=== PATIENT | female | born 1960 | race African-American/Black ===

== ENCOUNTER 2016-09-18 08:43 | Emergency (ER) | payer BC ==
[~2016-09-18] VITALS: Ht 157.5 cm; Wt 87.0 kg
[2016-09-18 09:56] LABS: BASOPHILS % 1.2 % (0.0-2.0); EOSINOPHILS % 1.5 % (0.0-5.0); HEMATOCRIT. 35.6 % (36.0-48.0); HEMOGLOBIN. 11.5 g/dL (12.0-16.0); LYMPHOCYTES % 33.9 % (20.0-50.0); MEAN CORPUSCULAR VOLUME 80.9 fL (81.0-99.0); MEAN PLATELET VOLUME 7.8 fl (7.4-10.4); MONOCYTES % 6.1 % (2.0-8.0); NEUTROPHILS % 57.3 % (40.0-76.0); PLATELET 283 x1000/uL (130-400); RED CELL DISTRIBUTION WIDTH 15.5 % (11.6-14.6)
[2016-09-18 10:04] LABS: PROTHROMBIN TIME 10.2 sec
[2016-09-18 10:13] LABS: CARBON DIOXIDE 28 mEq/L (21-32); CHLORIDE 106 mEq/L (98-107); TROPONIN I < 0.02 ng/mL (0.00-0.04)
[2016-09-18] MEDS ORDERED: KETOROLAC 30MG/ML VIAL IV ONE (11:45)
[2016-09-18 13:10] VITALS: BP 132/72
== END 2016-09-18 13:12 | disposition home or self-care (01) ==
LOC: ER 09:33
DX: M54.12 Radiculopathy, cervical region (principal); I10 Essential (primary) hypertension; M25.512 Pain in left shoulder
CPT/HCPCS: 36415; 71010; 72125; 80048; 84484; 85025; 85610; 93005; 96374; 99285; J1885; Z7610

== ENCOUNTER 2016-10-18 13:46 | Emergency (ER) | payer BC ==
[~2016-10-18] VITALS: Ht 157.5 cm; Wt 86.0 kg
[2016-10-18 13:58] VITALS: BP 153/100
[2016-10-18] MEDS ORDERED: IBUP-1509 PO (14:04)
[2016-10-18] MEDS ORDERED: AMLO5TAB4 PO (14:04)
== END 2016-10-18 17:03 | disposition left against medical advice (07) ==
LOC: ER 13:46
DX: Z53.21 Procedure and treatment not carried out due to patient leaving prior to being seen by health care provider (principal); I10 Essential (primary) hypertension

== ENCOUNTER 2020-06-29 05:45 | Emergency (ER) | payer BC ==
[~2020-06-29] VITALS: Ht 165.1 cm; Wt 80.0 kg
[~2020-06-29 05:45] MED LIST: AMLO5TAB4 PO; IBUP-2028 PO
[2020-06-29 06:20] VITALS: BP 133/74
== END 2020-06-29 06:33 | disposition home or self-care (01) ==
LOC: ER 05:45
DX: R04.0 Epistaxis (principal); I10 Essential (primary) hypertension; E03.9 Hypothyroidism, unspecified
CPT/HCPCS: 99283

== ENCOUNTER 2020-10-20 08:36 | Inpatient (IN) | payer BC ==
[~2020-10-20] VITALS: Ht 157.5 cm; Wt 78.9 kg
[2020-10-20] MEDS ORDERED: ACETAMINOPHEN 325MG TABLET PO STA (09:12)
[2020-10-20] MEDS ORDERED: ONDANSETRON 4MG ODT PO STA (09:12)
[2020-10-20 10:01] LABS: BASOPHILS % 0.9 % (0.0-2.0); HEMOGLOBIN. 12.7 g/dL (12.0-16.0); LYMPHOCYTES % 13.1 % (20.0-50.0); MEAN CORPUSCULAR HEMOGLOBIN 26.2 pg (28.0-32.0); MEAN CORPUSCULAR VOLUME 78.3 fL (81.0-99.0); MEAN PLATELET VOLUME 8.4 fl (7.4-10.4); MONOCYTES % 5.6 % (2.0-8.0); NEUTROPHILS % 80.4 % (40.0-76.0); PLATELET 293 x1000/uL (130-400); RED BLOOD CELL COUNT 4.84 mill/uL (4.2-5.4); RED CELL DISTRIBUTION WIDTH 14.7 % (11.6-14.6)
[2020-10-20 10:06] LABS: CHLORIDE 92 mEq/L (98-107)
[2020-10-20 10:10] LABS: ETHANOL BLOOD < 10 mg/dL
[2020-10-20 10:18] LABS: CLARITY URINE CLOUDY (CLEAR); COLOR URINE YELLOW (YELLOW); KETONES URINE 1+ (NEGATIVE); LEUKOCYTE ESTERASE URINE NEGATIVE (NEGATIVE); NITRITE URINE NEGATIVE (NEGATIVE); OCCULT BLOOD URINE NEGATIVE (NEGATIVE); PH URINE 5.5 (4.5-8.0); PROTEIN URINE 2+ (NEGATIVE); SPECIFIC GRAVITY URINE 1.026 (1.005-1.030)
[2020-10-20] MEDS ORDERED: AZITHROMYCIN 500 MG in DEXT 5% WATER 250 ML IV SCH (10:30)
[2020-10-20] MEDS ORDERED: SODIUM CHLORIDE 0.9% 500 ML IV NR (10:30)
[2020-10-20] MEDS ORDERED: POTASSIUM CHLORIDE 20MEQ TABLET SR PO NR (10:30)
[2020-10-20] MEDS ORDERED: CEFTRIAXONE 1 G PREMIX 50 ML IV NR (10:30)
[2020-10-20 11:13] LABS: *AMPHETAMINES SCREEN URINE NEGATIVE (NEGATIVE); *BARBITURATES SCREEN URINE NEGATIVE (NEGATIVE); *BENZODIAZEPINES SCREEN URINE NEGATIVE (NEGATIVE); *COCAINE SCREEN URINE NEGATIVE (NEGATIVE); CANNABINOID URINE SCREEN NEGATIVE (NEGATIVE); METHADONE URINE SCREEN NEGATIVE (NEGATIVE); OPIATES URINE SCREEN NEGATIVE (NEGATIVE)
[2020-10-20 11:14] LABS: PHENCYCLIDINE URINE SCREEN NEGATIVE (NEGATIVE)
[2020-10-21] VITALS: BP 139/82
[2020-10-21] MEDS ORDERED: POTASSIUM CHLORIDE 20MEQ TABLET SR PO NR (01:15)
[2020-10-21] MEDS ORDERED: ACETAMINOPHEN 325MG TABLET PO PRN (01:15)
[2020-10-21] MEDS ORDERED: DEXTROSE 50% WATER 50ML SYRINGE IV PRN (01:15)
[2020-10-21] MEDS ORDERED: ONDANSETRON HCL 4MG/2ML INJ IV PRN ×2 (01:15)
[2020-10-21] MEDS: PANTOPRAZOLE SODIUM 40 MG/VIAL IV SCH ×2 (02:32→11:00)
[2020-10-21] MEDS: SODIUM CHLORIDE 0.45% 1,000 ML IV SCH ×2 (02:32→13:43)
[2020-10-21] MEDS ORDERED: HYDR50TA MT (03:18)
[2020-10-21] MEDS ORDERED: LEVO100T9 MT (03:19)
[2020-10-21 04:00] VITALS: BP 117/71
[2020-10-21 05:54] LABS: HEMATOCRIT. 35.1 % (36.0-48.0); HEMOGLOBIN. 11.7 g/dL (12.0-16.0); MEAN CORPUSCULAR HEMOGLOBIN 26.2 pg (28.0-32.0); MEAN CORPUSCULAR VOLUME 78.7 fL (81.0-99.0); MEAN PLATELET VOLUME 9.2 fl (7.4-10.4); PLATELET 322 x1000/uL (130-400); RED BLOOD CELL COUNT 4.46 mill/uL (4.2-5.4); RED CELL DISTRIBUTION WIDTH 14.4 % (11.6-14.6)
[2020-10-21 06:16] LABS: CHLORIDE 94 mEq/L (98-107)
[2020-10-21] MEDS ORDERED: BLOOD SUGAR DIAGNOSTIC STRIP TEST SCH (07:10)
[2020-10-21] MEDS: BLOOD SUGAR DIAGNOSTIC STRIP TEST SCH ×4 (07:11→20:16)
[2020-10-21] MEDS: INSULIN LISPRO 100 UNITS/ML SUBCUT SCH ×4 (07:40→21:21)
[2020-10-21 08:00] VITALS: BP 121/71
[2020-10-21] MEDS ORDERED: CEFTRIAXONE 1 G PREMIX 50 ML IV SCH (09:00)
[2020-10-21] MEDS ORDERED: AMLODIPINE 5MG TABLET PO SCH (09:00)
[2020-10-21] MEDS ORDERED: METF-414 PO (10:51)
[2020-10-21] MEDS ORDERED: METF-414 MT (10:51)
[2020-10-21] MEDS: CEFTRIAXONE 1,000 MG in DEXTROSE 5% WATER 50 ML IV SCH (11:00)
[2020-10-21 12:00] VITALS: BP 119/76
[2020-10-21] MEDS: AZITHROMYCIN 500 MG in DEXT 5% WATER 250 ML IV SCH (13:42)
[2020-10-21 16:00] VITALS: BP 132/79
[2020-10-21 20:00] VITALS: BP 116/71
[2020-10-21 22:47] LABS: PLATELET ESTIMATE NORMAL
[2020-10-22] VITALS: BP 125/73
[2020-10-22] MEDS: SODIUM CHLORIDE 0.45% 1,000 ML IV SCH ×3 (02:00→22:37)
[2020-10-22 04:00] VITALS: BP 108/64
[2020-10-22] MEDS: BLOOD SUGAR DIAGNOSTIC STRIP TEST SCH ×4 (05:28→20:30)
[2020-10-22] MEDS: INSULIN LISPRO 100 UNITS/ML SUBCUT SCH ×4 (05:52→21:35)
[2020-10-22 08:00] VITALS: BP 105/64
[2020-10-22] MEDS: PANTOPRAZOLE SODIUM 40 MG/VIAL IV SCH (08:53)
[2020-10-22] MEDS: CEFTRIAXONE 1,000 MG in DEXTROSE 5% WATER 50 ML IV SCH (10:54)
[2020-10-22 12:00] VITALS: BP 122/66
[2020-10-22] MEDS: AZITHROMYCIN 500 MG in DEXT 5% WATER 250 ML IV SCH (12:14)
[2020-10-22] MEDS ORDERED: LACTULOSE 20G/30ML UDC PO PRN (16:15)
[2020-10-22] MEDS ORDERED: LORAZEPAM 2MG/ML CPJ IV PRN (16:15)
[2020-10-22] MEDS ORDERED: HYDROCODONE/ACETAMINOPHEN 5/325MG TABLET PO PRN (16:15)
[2020-10-22 16:27] LABS: BASOPHILS % 0.5 % (0.0-2.0); EOSINOPHILS % 1.1 % (0.0-5.0); HEMOGLOBIN. 11.8 g/dL (12.0-16.0); LYMPHOCYTES % 30.2 % (20.0-50.0); MEAN PLATELET VOLUME 8.6 fl (7.4-10.4); MONOCYTES % 8.3 % (2.0-8.0); NEUTROPHILS % 59.9 % (40.0-76.0); PLATELET 401 x1000/uL (130-400); RED BLOOD CELL COUNT 4.37 mill/uL (4.2-5.4); RED CELL DISTRIBUTION WIDTH 14.9 % (11.6-14.6)
[2020-10-22 16:47] LABS: CHLORIDE 96 mEq/L (98-107)
[2020-10-22] MEDS ORDERED: ENOXAPARIN 40MG/0.4ML SYR SUBCUT SCH (17:00)
[2020-10-22 17:09] LABS: BG BASE EXCESS 2.3 mmol/L (-2.0-2.0); BG CARBOXYHEMOGLOBIN 0.6 % (0.5-1.5); BG HCO3 ACT 24.8 mmol/L (22.0-26.0); BG METHEMOGLOBIN 0.1 % (0.0-1.5); BG OXYHEMOGLOBIN 95.3 % (94.0-97.0); BG PH 7.507 (7.350-7.450); BG PO2 77.4 mmHg (75.0-100.0); BG SAMPLE SITE RIGHT RADIAL; BG TOTAL HEMOGLOBIN 12.7 g/dL (12.0-18.0); BG VENT MODE ROOM AIR
[2020-10-22] MEDS ORDERED: METHYLPREDNISOLONE SOD SUCC 40 MG/ML VIAL IV SCH (18:00)
[2020-10-22 20:00] VITALS: BP 109/61
[2020-10-22] MEDS: IPRATROPIUM/ALBUTEROL 0.5-3(2.5)MG/3ML NEB HHN SCH (21:20)
[2020-10-22] MEDS ORDERED: IOHEXOL-350 100 ML BOTTLE ONE (22:46)
[2020-10-23] VITALS: BP 112/69
[2020-10-23] MEDS: IPRATROPIUM/ALBUTEROL 0.5-3(2.5)MG/3ML NEB HHN SCH ×3 (01:27→14:18)
[2020-10-23 04:00] VITALS: BP 127/74
[2020-10-23] MEDS: BLOOD SUGAR DIAGNOSTIC STRIP TEST SCH (05:19)
[2020-10-23] MEDS: INSULIN LISPRO 100 UNITS/ML SUBCUT SCH ×2 (05:32→13:06)
[2020-10-23 07:36] LABS: CHLORIDE 100 mEq/L (98-107)
[2020-10-23 08:00] VITALS: BP 125/66
[2020-10-23 08:37] LABS: BASOPHILS % 0.9 % (0.0-2.0); EOSINOPHILS % 1.1 % (0.0-5.0); HEMATOCRIT. 36.4 % (36.0-48.0); HEMOGLOBIN. 11.4 g/dL (12.0-16.0); LYMPHOCYTES % 35.6 % (20.0-50.0); MEAN CORPUSCULAR HEMOGLOBIN 25.9 pg (28.0-32.0); MEAN CORPUSCULAR VOLUME 83.1 fL (81.0-99.0); MONOCYTES % 7.3 % (2.0-8.0); NEUTROPHILS % 55.1 % (40.0-76.0); RED BLOOD CELL COUNT 4.38 mill/uL (4.2-5.4); RED CELL DISTRIBUTION WIDTH 15.2 % (11.6-14.6)
[2020-10-23] MEDS: PANTOPRAZOLE SODIUM 40 MG/VIAL IV SCH (09:25)
[2020-10-23] MEDS: CEFTRIAXONE 1,000 MG in DEXTROSE 5% WATER 50 ML IV SCH (11:54)
[2020-10-23 12:00] VITALS: BP 131/77
[2020-10-23] MEDS ORDERED: ALBU90AE INH (12:57)
[2020-10-23] MEDS ORDERED: LEVO500T89 MT (12:57)
[2020-10-23] MEDS ORDERED: FAMO-135 PO (12:57)
[2020-10-23] MEDS ORDERED: BLOO-1613 MC (12:57)
[2020-10-23] MEDS ORDERED: INSLIS SUBCUT (12:57)
[2020-10-23] MEDS ORDERED: METF-414 MT (12:57)
[2020-10-23] MEDS ORDERED: P20 PO (12:57)
[2020-10-23] MEDS ORDERED: INSU100I28 SQ (12:57)
[2020-10-23 13:25] VITALS: BP 131/77
[2020-10-23 20:00] VITALS: BP 110/60
[2020-10-24] MEDS ORDERED: FAMOTIDINE 20MG/2ML VIAL IV SCH (09:00)
== END 2020-10-23 16:00 | disposition home health service (06) | DRG 871 ==
LOC: ER 08:36 → MICUSO 13:02 → EDBEDREQ 13:07 → EDBEDREQTM 13:28 → 8WST 22:34
PROVIDERS: ADMIT Internal Medicine; ATTEND Internal Medicine
DX: A41.9 Sepsis, unspecified organism (principal); J18.9 Pneumonia, unspecified organism; N39.0 Urinary tract infection, site not specified; E87.1 Hypo-osmolality and hyponatremia; I10 Essential (primary) hypertension; K76.0 Fatty (change of) liver, not elsewhere classified; E03.9 Hypothyroidism, unspecified; E11.65 Type 2 diabetes mellitus with hyperglycemia; E87.6 Hypokalemia; Z20.822 Contact with and (suspected) exposure to COVID-19; Z79.4 Long term (current) use of insulin; Z79.899 Other long term (current) drug therapy; Z79.1 Long term (current) use of non-steroidal anti-inflammatories (NSAID); Z82.49 Family history of ischemic heart disease and other diseases of the circulatory system; Z83.3 Family history of diabetes mellitus
CPT/HCPCS: 36415; 36600; 71045; 71275; 74176; 76705; 80048; 80053; 80076; 80305; 80320; 81003; 82375; 82805; 82962; 83036; 83605; 84145; 84436; 84443; 84484; 85025; 85379; 93005; 93306; 94640; 99291; C1893; C9113; C9803; J0456; J0696; J1650; J1815; J7060; Q0162; Q9967; U0003; U0005; G0480